=== PATIENT | female | born 1995 | race Caucasian/White ===

== ENCOUNTER 2020-09-08 13:11 | Outpatient (CLI) | payer BC | END 2020-09-08 13:12 | disposition home or self-care (01) | LOC: BICULT 13:11 | PROVIDERS: ATTEND Family Medicine | DX: M25.462 Effusion, left knee (principal); R60.0 Localized edema | CPT/HCPCS: 76999 ==

== ENCOUNTER 2021-07-23 15:33 | Emergency (ER) | payer BC ==
[2021-07-23 17:48] LABS: #Lymphocytes 1.7 thou/uL (1.20-3.40); #Monocytes 0.5 thou/uL (0.11-0.59); #Neutrophils 4.1 thou/uL (1.40-6.50); %Basophils 0.2 % (0.0-1.0); %Eosinophils 0.1 % (0.0-10.0); %Lymphocytes 26.3 % (21.0-51.0); %Monocytes 8.4 % (0.0-10.0); Hemoglobin 14.7 g/dL (12.0-16.0); Mean Corpuscular HGB CONC 32.7 g/dL (32.0-36.0); Mean Corpuscular Hemoglobin 30.5 pg (27.0-31.0); Mean Corpuscular Volume 93.3 fL (78.0-98.0); Mean Platelet Volume 8.7 fL (7.4-10.4); Platelet Count 235 thou/uL (130-400); RBC Distribution Width 11.5 % (11.5-14.5); Red Blood Cell (RBC) Count 4.81 mill/uL (4.20-5.40); White Blood Cell (WBC) Count 6.3 thou/uL (4.8-10.8)
[2021-07-23 18:07] LABS: CK (CPK) 53 U/L (29-168); CRP (Inflammatory) Less than 0.50 mg/dL (= or < 0.5)
== END 2021-07-23 17:57 | disposition home or self-care (01) ==
LOC: ERS 15:33
DX: M25.475 Effusion, left foot (principal)
CPT/HCPCS: 36415; 82550; 85025; 85652; 86140

== ENCOUNTER 2022-09-07 13:37 | Outpatient (CLI) | payer BC | END 2022-09-07 13:38 | disposition home or self-care (01) | LOC: ULT 13:37 | PROVIDERS: ATTEND Internal Medicine | DX: R01.1 Cardiac murmur, unspecified (principal); D50.0 Iron deficiency anemia secondary to blood loss (chronic) | CPT/HCPCS: 93306 ==

== ENCOUNTER 2022-09-19 13:00 | Outpatient (CLI) | payer BC | END 2022-09-19 13:01 | disposition home or self-care (01) | LOC: ULT 13:00 | PROVIDERS: ATTEND Family Medicine | DX: R10.9 Unspecified abdominal pain (principal) | CPT/HCPCS: 76705 ==